=== PATIENT | female | born 1950 | race Caucasian/White ===

== ENCOUNTER → 2016-12-03 08:51 | Outpatient (CLI) | payer BC | END | disposition home or self-care (01) | LOC: D.CT 08:51 | DX: J98.4 Other disorders of lung (principal) ==

== ENCOUNTER 2017-02-25 10:00 | Outpatient (CLI) | payer BC | END 2017-02-25 23:59 | disposition home or self-care (01) | LOC: D.MAMMO 10:00 | DX: Z12.31 Encounter for screening mammogram for malignant neoplasm of breast (principal) ==

== ENCOUNTER → 2017-12-13 09:22 | Outpatient (CLI) | payer BC | END | disposition home or self-care (01) | LOC: D.RAD 09:22 | DX: R91.8 Other nonspecific abnormal finding of lung field (principal) ==

== ENCOUNTER → 2018-12-08 08:36 | Outpatient (CLI) | payer BC ==
[~2018-12-08 08:36] MED LIST: NORVASC5 MG PO; NP THYROID90 MG PO; SINGULAIR10 MG PO
[2019-01-15 06:40] VITALS: BMI 29.3
== END | disposition home or self-care (01) ==
LOC: D.RT 08:36
PROVIDERS: ATTEND Internal Medicine Pulmonary Disease
DX: J98.4 Other disorders of lung (principal); J45.909 Unspecified asthma, uncomplicated

== ENCOUNTER 2019-01-15 05:28 | Outpatient (CLI) | payer BC ==
[~2019-01-15] VITALS: Ht 152.4 cm; Wt 68.2 kg
[2019-01-15 06:20] LABS: BASOPHILS 0.7 % (0-2); HEMOGLOBIN 14.6 g/dL (12-16); IMMATURE GRANULOCYTES 0.4 % (0-5); LYMPHOCYTES 18.6 % (15-50); MCH 30.4 pg (26.0-34.0); MCV 89.6 fL (80.0-100.0); MEAN PLATELET VOLUME 9.4 fL (7.4-10.4); MONOCYTES 11.4 % (2-11); NEUTROPHILS 64.9 % (40-80); PLATELET COUNT 235 10x3/uL (130-400); RDW 13.8 % (11.5-14.5); WBC 5.4 10x3/uL (4.8-10.8)
[2019-01-15 06:26] LABS: APTT 32.9 SECONDS (22.8-39.4); INR 1.04 (0.85-1.17); PROTIME 13.1 SECONDS (11.6-15.0)
[2019-01-15 06:29] LABS: CALC OSMOLALITY 279 mosm/kg (275-300); CALCIUM 9.4 mg/dL (8.5-10.1); CARBON DIOXIDE 26.8 mmol/L (21.0-32.0); CHLORIDE - SERUM 104 mmol/L (98-107); CREATININE - SERUM 0.8 mg/dL (0.6-1.3); GLUCOSE 95 mg/dL (74-106); SODIUM 140 mmol/L (136-145); UREA NITROGEN 14 mg/dL (7-18); eGFR NON AFRICAN AMERICAN 76 mL/min (90-120)
[2019-01-15] MEDS ORDERED: NP THYROID90 MG PO (06:31)
[2019-01-15] MEDS ORDERED: SINGULAIR10 MG PO (06:32)
[2019-01-15] MEDS ORDERED: NORVASC5 MG PO (06:32)
[2019-01-15 06:39] LABS: % SATURATION 21 % (15-55); IRON 64 ug/dl (35-150); TOTAL IRON BIND CAPACITY 298 ug/dl (260-445); UNSAT IRON BIND CAPACITY 234 ug/dl (150-375)
[2019-01-15 06:40] VITALS: BP 162/76; Ht 152.4 cm; Wt 68.2 kg
[2019-01-15 06:50] LABS: ALBUMIN 3.7 g/dL (3.4-5.0); BILIRUBIN - DIRECT 0.19 mg/dL (0.00-0.30); BILIRUBIN - INDIRECT 0.56 mg/dL (0.00-1.00); BILIRUBIN - TOTAL 0.75 mg/dL (0.2-1.3); PROTEIN - SERUM 7.4 g/dL (6.4-8.2)
--- NOTE | 2019-01-15 09:50 | NUR ---
0935 PT STARTED FEELING FAINT AND CALLED FOR NURSE. B/P 77/50. PT'S HEAD LOWERED. IV FLUIDS OPENED. PT PALE AND DIAPHORETIC. PT IS VERBALLY RESPONSIVE. 0937 B/P 87/56 0950 102/42 PT IS FEELING BETTER. IV FLUIDS RUNNING WIDE OPEN. HOB REMAINS DOWN.
--- NOTE | 2019-01-15 09:54 | NUR ---
0920 VITAL SIGNS ARE BEING RECORDED ON POST PROCEDURE FORM AND IN PAPER CHART.
--- NOTE | 2019-01-15 10:03 | NUR ---
1000 PT STATES SHE FEELS MUCH BETTER. ELEVATED HOB SLIGHTLY. PT RECEIVED 400CC 0.45%NS IV. COLOR GOOD. PT WARM AND DRY.
--- NOTE | 2019-01-15 15:24 | NUR ---
1320 SAMMY WYMAN RN, FROM [facility] HAS BEEN HERE TO EVALUATE PT'S CONCERN OF HER ABDOMEN BEING "A LITTLE SWOLLEN" NO C/O PAIN. VSS. NO FURTHER VASO-VAGAL SYNCOPE EVENTS SINCE 939. PT STATES SHE IS READY TO BE DISCHARGED HOME.
[2019-01-16 07:11] LABS: HAPTOGLOBIN 54 mg/dL (34-200)
[2019-01-16 09:09] LABS: HEPATITIS C ANTIBODY 0.1 S/CO RAT (0.0-0.9)
[2019-01-16 10:11] LABS: ANA REFLEX - DIRECT Negative (Negative)
[2019-01-16 13:10] LABS: ALPHA FETOPROTEIN -(TUMOR MRK) 2.5 ng/mL (0.0-8.3)
[2019-01-17 12:09] LABS: SMOOTH MUSCLE ABS (ACTIN) 11 Units (0-19)
[2019-01-17 13:10] LABS: MITOCHONDRIAL ANTIBODY <20.0 Units (0.0-20.0)
== END 2019-01-15 13:32 | disposition home or self-care (01) ==
LOC: D.CT 05:28
PROVIDERS: General Practice; ATTEND Internal Medicine Gastroenterology
DX: R93.2 Abnormal findings on diagnostic imaging of liver and biliary tract (principal); R94.5 Abnormal results of liver function studies; R10.13 Epigastric pain

== ENCOUNTER → 2019-01-24 08:57 | Outpatient (CLI) | payer BC ==
[2019-01-15 06:40] VITALS: BMI 29.3
[2019-01-26 09:10] LABS: ALP - ISO (ALP) 318 IU/L (39-117); ALP - ISO (BONE) FRACTION 32 % (14-68); ALP - ISO (LIVER) FRACTION 63 % (18-85); ALP - ISO(INTESTINAL) FRACTION 5 % (0-18)
== END | disposition home or self-care (01) ==
LOC: D.LAB 08:57
PROVIDERS: ATTEND Internal Medicine Gastroenterology
DX: R74.8 Abnormal levels of other serum enzymes (principal)

== ENCOUNTER 2019-11-09 13:00 | Outpatient (CLI) | payer BC ==
[2019-05-25 19:10] VITALS: BMI 28.7
[~2019-11-09 13:00] MED LIST changes: +AZELASTINE137 MCG/0. NASAL; +FLUTICASONE PRO16 GM NASAL; +HYDROCODON-ACE1 EA10 PO; +MAG-OX 400 MG400 MG PO; +NORVASC2.5 MG PO; +selenium PO
== END 2019-11-09 14:00 | disposition home or self-care (01) ==
LOC: D.MAMMO 13:00
PROVIDERS: ATTEND Family Medicine
DX: Z12.31 Encounter for screening mammogram for malignant neoplasm of breast (principal)